=== PATIENT | female | born 1975 | race Two or more races ===

== ENCOUNTER 2018-12-15 15:47 | Emergency (ER) | payer OTHER ==
[~2018-12-15] VITALS: Ht 157.5 cm; Wt 142.0 kg
--- NOTE | 2018-12-15 16:00 | NUR ---
patient presented to the ER sent by PMD to r/o DVT. Patient is alert. on room air, breathing evenly and unlabored. Connected to the monitor and pulse ox. kept comfortable. will conitnue to monitor accordingly.
[2018-12-15 17:30] VITALS: BP 120/81
--- NOTE | 2018-12-15 17:32 | NUR ---
Patient discharged to home in stable condition. Written and verbal after care instructions given. Patient verbalizes understanding of instruction.
== END 2018-12-15 17:31 | disposition home or self-care (01) ==
LOC: ER 15:49
DX: M79.604 Pain in right leg (principal); J45.909 Unspecified asthma, uncomplicated; F32.9 Major depressive disorder, single episode, unspecified; Z88.8 Allergy status to other drugs, medicaments and biological substances; Z88.2 Allergy status to sulfonamides; Z91.09 Other allergy status, other than to drugs and biological substances; Z60.2 Problems related to living alone
CPT/HCPCS: 93971-TC; J7030

== ENCOUNTER 2019-11-08 12:53 | Emergency (ER) | payer OTHER ==
[~2019-11-08] VITALS: Ht 157.5 cm; Wt 145.1 kg
--- NOTE | 2019-11-08 13:00 | NUR ---
bibsevickie "Was Diagnosed w/flu Saturday On Meds NOT better". no sob or c/p noted. kept comportable.
--- NOTE | 2019-11-08 13:04 | NUR ---
Osman TRUONG at [facility] for eval.
[2019-11-08 13:27] VITALS: BP 142/88
--- NOTE | 2019-11-08 13:29 | NUR ---
Patient discharged to home in stable condition. Written and verbal after care instructions given. Patient verbalizes understanding of instruction.
== END 2019-11-08 13:27 | disposition home or self-care (01) ==
LOC: ER 12:54
DX: J11.1 Influenza due to unidentified influenza virus with other respiratory manifestations (principal); J45.909 Unspecified asthma, uncomplicated; Z60.2 Problems related to living alone; Z88.6 Allergy status to analgesic agent; Z91.048 Other nonmedicinal substance allergy status; Z88.2 Allergy status to sulfonamides